=== PATIENT | female | born 1985 | race Two or more races ===

== ENCOUNTER 2017-10-24 03:33 | Emergency (ER) | payer SELFPAY ==
[2017-10-24 03:42] VITALS: BP 130/80
[2017-10-24] MEDS ORDERED: DICYCLOMINE HCL INJ 20 MG/2 ML AMPULE IM ONE (03:59)
[2017-10-24] MEDS ORDERED: ONDANSETRON HCL INJ/PF 4 MG/2 ML SDV IV ONE (03:59)
--- NOTE | 2017-10-24 04:00 | ER Document Report ---
ED General - General Mode of Arrival: Ambulatory Information source: Patient TRAVEL OUTSIDE OF THE [place] IN LAST 30 DAYS: No <TIAN ELIZALDE - Last Filed: 10/24/17 03:57> <ANH MARTINEZ - Last Filed: 10/24/17 06:16> - General Chief Complaint: Abdominal Pain Stated Complaint: UPPER ABDOMINAL PAIN Time Seen by Provider: 10/24/17 03:44 Notes: Patient is a 32 year old female presenting to the emergency department complaining of multiple symptoms including abdominal pain, vomiting, and diarrhea onset this morning. Patient states the pain is located diffusely across her abdomen. Patient denies any fevers or sick contacts. (TIAN ELIZALDE) - Related Data Allergies/Adverse Reactions: No Known Allergies Allergy (Unverified 10/24/17 03:38) Past Medical History - General Information source: Patient - Social History Smoking Status: Unknown if Ever Smoked <TIAN ELIZALDE - Last Filed: 10/24/17 03:57> - Social History Family History: None - Medical History Medical History: Negative Surgical Hx: Negative <ANH MARTINEZ - Last Filed: 10/24/17 06:16> Review of Systems - Review of Systems Constitutional: No symptoms reported EENT: No symptoms reported Cardiovascular: No symptoms reported Respiratory: No symptoms reported Gastrointestinal: See HPI, Abdominal pain, Diarrhea, Nausea, Vomiting Genitourinary: No symptoms reported Female Genitourinary: No symptoms reported Musculoskeletal: No symptoms reported Skin: No symptoms reported Hematologic/Lymphatic: No symptoms reported Neurological/Psychological: No symptoms reported -: Yes All other systems reviewed and negative <TIAN ELIZALDE - Last Filed: 10/24/17 03:57> Physical Exam - General General appearance: Alert, Other - Appears uncomfortable <TIAN ELIZALDE - Last Filed: 10/24/17 03:57> - Vital signs Vitals: Temp Pulse Resp BP Pulse Ox 98.1 F 72 18 130/80 H 98 10/24/17 03:38 10/24/17 03:38 10/24/17 03:38 10/24/17 03:38 10/24/17 03:38 Course <TIAN ELIZALDE - Last Filed: 10/24/17 03:57> - Laboratory Result Diagrams: 10/24/17 04:55 10/24/17 04:55 - Diagnostic Test Radiology reviewed: Reports reviewed <ANH MARTINEZ - Last Filed: 10/24/17 06:16> - Re-evaluation Re-evalutation: 10/24/17 06:13 No acute findings on CT or blood work. Patient will be discharged home with pain and nausea medication. She is to follow-up with surgery as necessary. Stable for discharge. Understands and agrees with plan. (ANH MARTINEZ ) - Vital Signs Vital signs: Temp Pulse Resp BP Pulse Ox 98.1 F 72 18 130/80 H 98 10/24/17 03:38 10/24/17 03:38 10/24/17 03:38 10/24/17 03:38 10/24/17 03:38 - Laboratory Laboratory results interpreted by me: 10/24/17 04:55 Chloride 109 H Creatinine 0.47 L AST 45 H Discharge <TIAN ELIZALDE - Last Filed: 10/24/17 03:57> <ANH MARTINEZ - Last Filed: 10/24/17 06:16> - Discharge Clinical Impression: Abdominal pain Qualifiers: Abdominal location: unspecified location Qualified Code(s): R10.9 - Unspecified abdominal pain Vomiting Qualifiers: Vomiting type: unspecified Vomiting Intractability: non-intractable Nausea presence: with nausea Qualified Code(s): R11.2 - Nausea with vomiting, unspecified Diarrhea Qualifiers: Diarrhea type: unspecified type Qualified Code(s): R19.7 - Diarrhea, unspecified Condition: Stable Disposition: HOME, SELF-CARE Instructions: Abdominal Pain ([facility]), Vomiting ([facility]), Diarrhea, Nonspecific ([facility]) Prescriptions: Ondansetron [Zofran Odt 4 mg Tablet] 1 tab PO Q6HP PRN #15 tab.rapdis PRN Reason: For Nausea/Vomiting Dicyclomine HCl [Bentyl 20 mg Tablet] 20 mg PO BIDP PRN #20 tablet PRN Reason: Metoclopramide HCl [Reglan 10 mg Tablet] 1 - 2 tab PO ASDIR PRN #25 tablet PRN Reason: Forms: Return to Work Referrals: JAZMIN ANNA MD [WILLI DICK] - Follow up in 3-5 days Print Language: Romanian Scribe Attestation: 10/24/17 06:16 I personally performed the services described in the documentation, reviewed and edited the documentation which was dictated to the scribe in my presence, and it accurately records my words and actions. (ANH MARTINEZ) Scribe Documentation - Scribe Written by Lindsay:: Lindsay Becerra, 10/24/2017 03:59 acting as scribe for :: Byron <TIAN ELIZALDE - Last Filed: 10/24/17 03:57>
[2017-10-24 05:10] LABS: ABSOLUTE EOSINOPHILS # (AUTO) 0.2 10^3/uL (0.0-0.6); ABSOLUTE LYMPHOCYTES (AUTO) 1.9 10^3/uL (0.5-4.7); ABSOLUTE MONOCYTES (AUTO) 0.6 10^3/uL (0.1-1.4); BASOPHILS % (AUTO) 0.2 % (0-2); EOSINOPHILS % (AUTO) 1.8 % (0-6); HEMATOCRIT 39.7 % (36.0-47.0); HEMOGLOBIN 13.7 g/dL (12.0-15.5); LYMPHOCYTES % (AUTO) 21.7 % (13-45); MEAN CORPUSCULAR HGB CONC 34.5 g/dL (32.0-36.0); MEAN CORPUSCULAR VOLUME 87 fl (80-97); MONOCYTES % (AUTO) 6.8 % (3-13); PLATELET COUNT 236 10^3/uL (150-450); RED BLOOD COUNT 4.56 10^6/uL (3.72-5.28); RED CELL DISTRIBUTION WIDTH 13.6 % (11.5-14.0); SEGMENTED NEUTROPHILS % (AUTO) 69.5 % (42-78); TOTAL CELLS COUNTED % (AUTO) 100 %; WHITE BLOOD COUNT 8.7 10^3/uL (4.0-10.5)
[2017-10-24] MEDS ORDERED: DICYCLOMINE HCL 20 MG TABLET PO ONE (05:15)
[2017-10-24] MEDS ORDERED: SUCRALFATE 1 GM TABLET PO ONE ×2 (05:15→06:41)
[2017-10-24 05:17] LABS: APPEARANCE,URINE CLEAR; BILIRUBIN,URINE NEGATIVE (NEGATIVE); COLOR,URINE YELLOW; GLUCOSE, URINE NEGATIVE (NEGATIVE); KETONES,URINE NEGATIVE (NEGATIVE); LEUKOCYTE ESTERASE,URINE NEGATIVE (NEGATIVE); NITRITE,URINE NEGATIVE (NEGATIVE); PROTEIN,URINE NEGATIVE (NEGATIVE); URINE SPECIFIC GRAVITY 1.012; UROBILINOGEN,URINE NEGATIVE mg/dL (<2.0)
[2017-10-24 05:28] LABS: ALANINE AMINOTRANSFERASE 46 U/L (9-52); ALBUMIN 4.2 g/dL (3.5-5.0); ALKALINE PHOSPHATASE 119 U/L (38-126); ANION GAP 11 (5-19); ASPARTATE AMINO TRANSFERASE 45 U/L (14-36); BILIRUBIN,DIRECT 0.3 mg/dL (0.0-0.4); BILIRUBIN,TOTAL 0.3 mg/dL (0.2-1.3); BLOOD UREA NITROGEN 8 mg/dL (7-20); CALCIUM 8.9 mg/dL (8.4-10.2); CARBON DIOXIDE 24 mmol/L (22-30); CHLORIDE 109 mmol/L (98-107); GLUCOSE 110 mg/dL (75-110); LIPASE 55.9 U/L (23-300); SODIUM 144.4 mmol/L (137-145); TOTAL PROTEIN 7.9 g/dL (6.3-8.2)
--- NOTE | 2017-10-24 06:07 | RADIOLOGY REPORT (SQ) ---
EXAM DESCRIPTION: CT ABDOMEN PELVIS WITHOUT IV CONTRAST COMPLETED DATE/TME: 10/24/2017 03:58 CLINICAL HISTORY: 32 years Female, abd pain, N/V Comparison: None. Technique: No contrast. Coronal and sagittal reformat. This exam was performed according to our departmental dose-optimization program, which includes automated exposure control, adjustment of the mA and/or kV according to patient size and/or use of iterative reconstruction technique.[facility]: Dose Right [facility]: CareDose [facility]: Dose Right [facility]: Teradose 4D [facility]: trippiece LIMITATIONS: None Findings: Small linear calcification at the posterior aspect of the gallbladder probably due to small layered cholelithiasis; differential diagnosis includes small partial mural calcification. Gallbladder hydrops with transverse diameter measuring 3.9 cm. Chronic bilateral L5 spondylolysis, 0.7 cm grade 1 L5 anterolisthesis, moderate-severe bilateral L5 foraminal stenosis, left more than right. Normal appendix. No free fluid. Unenhanced lower thorax, abdominopelvic structures, and musculoskeleton appear otherwise grossly unremarkable. Impression: 1. Cholelithiasis. Gallbladder hydrops. 2. Grade 1 L5 anterolisthesis with moderate to severe bilateral L5 foraminal stenosis, left more than right.
[2017-10-24] MEDS ORDERED: ONDANSETRON ODT 4 MG TAB (6 TAB/ER DISP) PO PRN (06:17)
[2017-10-24] MEDS ORDERED: METOCLOPRAMIDE HCL 10 MG TABLET PO ONE (06:41)
== END 2017-10-24 06:57 | disposition home or self-care (01) ==
LOC: ER 03:33
DX: R10.84 Generalized abdominal pain (principal); R19.7 Diarrhea, unspecified; R11.2 Nausea with vomiting, unspecified
CPT/HCPCS: 99284; 36415; 83690; 85025; 81025; 80053; 81001; 74176; J3490; J0500; J2405